=== PATIENT | female | born 1960 | race Caucasian/White ===

== ENCOUNTER 2023-04-20 11:20 | Emergency (ER) | payer BC ==
[~2023-04-20] VITALS: Ht 177.8 cm; Wt 112.6 kg
[2023-04-20 11:26] VITALS: TEMP 98.2
[2023-04-20] MEDS ORDERED: NOXI1TAB PO (11:39)
[2023-04-20] MEDS ORDERED: MAGN200T PO (11:39)
[2023-04-20] MEDS ORDERED: BACITRACIN OINTMENT 30GM TUBE TOP ONE (13:45)
[2023-04-20] MEDS ORDERED: BOOSTRIX VACCINE (TETANUS/DIPHTH/ACEL. PERTUSSIS) 0.5ML SYR IM.IMMUN ONE (13:45)
[2023-04-20] MEDS ORDERED: LIDOCAINE W/EPINEPHRINE 1% 20ML VIAL SC ONE (13:45)
[2023-04-20] MEDS ORDERED: CEPH500C PO (15:32)
[2023-04-20 15:44] VITALS: BP 142/71; O2SAT 100
== END 2023-04-20 15:44 | disposition home or self-care (01) ==
LOC: M ED 11:20
DX: S81.812A Laceration without foreign body, left lower leg, initial encounter (principal); W01.0XXA Fall on same level from slipping, tripping and stumbling without subsequent striking against object, initial encounter; Y92.009 Unspecified place in unspecified non-institutional (private) residence as the place of occurrence of the external cause; Y93.01 Activity, walking, marching and hiking; Y99.8 Other external cause status